=== PATIENT | male | born 1985 | race Caucasian/White ===

== ENCOUNTER 2017-07-19 01:08 | Emergency (ER) | payer MEDICAID ==
[~2017-07-19] VITALS: Ht 170.2 cm; Wt 83.9 kg
[2017-07-19 01:32] VITALS: BP 146/74
--- NOTE | 2017-07-19 01:32 | NUR ---
PT BIBSELF C/O SURGERY INCISION INFECTION X 1 DAY. PT AOX3 RR EVEN AND UNLABORED. NO SOB NOTED. NAD NOTED. NO NVD AT THIS TIME. PT GOWNED AND PLACED ON MONITOR. PT HAD LAPASCOPIC CHOLECYSTECTOMY 07/17/17 AT [facility]. PT WAITING FOR MD PHILLIPS.
[2017-07-19] MEDS ORDERED: AMOX/CLAVULANATE 875 MG TABLET ONE (02:19)
[2017-07-19] MEDS ORDERED: AMOX/CLAVULANATE 875 MG TABLET PO ONE (02:30)
== END 2017-07-19 02:22 | disposition home or self-care (01) ==
LOC: ER 01:12
DX: L03.311 Cellulitis of abdominal wall (principal)
CPT/HCPCS: A4606; J7030; Z7610

== ENCOUNTER 2018-01-27 15:18 | Emergency (ER) | payer MEDICAID, OTHER ==
[~2018-01-27] VITALS: Ht 167.6 cm; Wt 69.9 kg
[2018-01-27 16:20] VITALS: BP 145/74
[2018-01-27] MEDS ORDERED: HYDROCODONE/APAP 5/325MG 1 EACH TABLET PO ONE (16:30)
[2018-01-27] MEDS ORDERED: HYDROCODONE/APAP 5/325MG 1 EACH TABLET ONE (16:32)
--- NOTE | 2018-01-27 16:56 | NUR ---
URINE SENT TO LAB
[2018-01-27 17:17] LABS: APPEARANCE,URINE Clear (CLEAR); BILIRUBIN,URINE Negative (NEGATIVE); BLOOD, URINE Negative Ery/uL (NEGATIVE); COLOR,URINE Yellow (YELLOW); KETONES,URINE Negative (NEGATIVE); LEUKOCYTE ESTERASE ,URINE Negative (NEGATIVE); NITRITE, URINE Negative (NEGATIVE); PROTEIN,URINE Negative (NEGATIVE); UGLUCOSE Negative (NEGATIVE); UROBILINOGEN,URINE 0.2 EU/dL (0.2)
== END 2018-01-27 19:13 | disposition home or self-care (01) ==
LOC: ER 15:22
DX: N45.2 Orchitis (principal)
CPT/HCPCS: 76870; 81001; 87491; 87591; 99285; A4606; Z7610; 81000-TC